=== PATIENT | male | born 1950 | race Caucasian/White ===

== ENCOUNTER → 2023-06-03 10:46 | Outpatient (REF) | payer OTHER, SELFPAY | LOC: HWRAD 10:46 | PROVIDERS: ATTENDING PHYSICIAN Internal Medicine Critical Care Medicine; FAMILY PHYSICIAN Family Medicine | DX: Z87.891 Personal history of nicotine dependence (principal) | CPT/HCPCS: 71271 ==

== ENCOUNTER → 2023-07-14 07:58 | Outpatient (REF) | payer OTHER, SELFPAY ==
[2023-07-14 09:22] LABS: % Basophils 0.6 % (0-2); % Immature Granulocytes 0.7 % (0-0.5); % Lymphocytes 33.7 % (20.5-51.1); % Monocytes 11.3 % (1.7-9.3); % Neutrophils 49.7 % (42.2-75.2); Absolute Eosinophils 0.3 10^3/uL (0-0.7); Absolute Immature Granulocytes 0.1 10^3/uL (0-0.05); Absolute Lymphocytes 2.3 10^3/uL (1.2-3.4); Absolute Monocytes 0.8 10^3/uL (0.1-0.6); Absolute Neutrophils 3.4 10^3/uL (1.4-6.5); Hematocrit 41.4 % (39.0-52.0); Hemoglobin 13.5 g/dL (13.0-18.0); Mean Corp Hgb Conc. 32.6 g/dL (33.0-37.0); Mean Corpuscular Hgb 29.3 pg (27.0-31.0); Mean Platelet Volume 9.5 fL (7.4-10.4); Nucleated Red Blood Cells % 0 % (-); Platelet Count 241 10^3/uL (130-400); Red Cell Dist. Width 13.9 % (11.5-14.5); White Blood Cell Count 6.8 10^3/uL (4.8-10.8)
[2023-07-14 09:50] LABS: Glycohemoglobin (HgbA1c) 6.5 % (4.0-5.6)
[2023-07-14 10:10] LABS: ALT (SGPT) 22 U/L (0-50); AST (SGOT) 27 U/L (17-59); Albumin 3.8 g/dl (3.5-5.0); Alkaline Phosphatase 47 U/L (38-126); Blood Urea Nitrogen 19 mg/dl (9-20); Calcium 9.1 mg/dl (8.4-10.2); Carbon Dioxide 25 mmol/L (22-30); Chloride 105 mmol/L (98-107); Glucose 100 mg/dl (70-99); HDL Cholesterol 51 mg/dl; LDL Cholesterol, Calculated 43 mg/dl; Potassium 4.6 mmol/L (3.5-5.1); Sodium 136 mmol/L (135-145); Total Bilirubin 0.4 mg/dl (0.2-1.3); Total Cholesterol 110 mg/dl (50-199); Total Protein 6.5 g/dl (6.3-8.2); Triglyceride 84 mg/dl (10-149); Very Low Density Lipoprotein 16 mg/dl (0-30); eGFR > 60.00
[2023-07-14 10:37] LABS: TSH 1.58 uIU/ml (0.47-4.68)
== END ==
LOC: HWLAB 07:58
PROVIDERS: ATTENDING PHYSICIAN Internal Medicine; FAMILY PHYSICIAN Family Medicine
DX: I25.10 Atherosclerotic heart disease of native coronary artery without angina pectoris (principal); E78.00 Pure hypercholesterolemia, unspecified
CPT/HCPCS: 36415; 80053; 80061; 83036; 84443; 85025

== ENCOUNTER → 2023-07-29 13:51 | Outpatient (REF) | payer OTHER, SELFPAY | LOC: HWRCS 13:51 | PROVIDERS: ATTENDING PHYSICIAN Internal Medicine; FAMILY PHYSICIAN Family Medicine | DX: I25.10 Atherosclerotic heart disease of native coronary artery without angina pectoris (principal) | CPT/HCPCS: 93306 ==

== ENCOUNTER → 2024-01-19 09:35 | Outpatient (REF) | payer OTHER, SELFPAY ==
[2024-01-19 12:08] LABS: ALT (SGPT) 22 U/L (0-50); AST (SGOT) 26 U/L (17-59); Albumin 3.9 g/dl (3.5-5.0); Alkaline Phosphatase 39 U/L (38-126); Blood Urea Nitrogen 15 mg/dl (9-20); Calcium 8.8 mg/dl (8.4-10.2); Carbon Dioxide 25 mmol/L (22-30); Chloride 107 mmol/L (98-107); Glucose 107 mg/dl (70-99); Potassium 4.6 mmol/L (3.5-5.1); Sodium 143 mmol/L (135-145); Total Bilirubin 0.3 mg/dl (0.2-1.3); Total Protein 6.4 g/dl (6.3-8.2); eGFR > 60.00
[2024-01-19 12:21] LABS: Microalbumin, Random Urine 0.8 mg/dl (0.6-1.7); Microalbumin/creatinine Ratio 3.8 mg/g
[2024-01-19 12:33] LABS: PSA, Total - Screen 2.92 ng/ml (0.0-4.0)
[2024-01-19 12:55] LABS: Glycohemoglobin (HgbA1c) 6.3 % (4.0-5.6)
== END ==
LOC: HWLAB 09:35
PROVIDERS: ATTENDING PHYSICIAN Family Medicine
DX: E11.9 Type 2 diabetes mellitus without complications (principal); K21.9 Gastro-esophageal reflux disease without esophagitis; Z12.5 Encounter for screening for malignant neoplasm of prostate; I10 Essential (primary) hypertension
CPT/HCPCS: 36415; 80053; 82043; 82570; 83036; G0103

== ENCOUNTER 2024-04-27 14:14 | Emergency (ER) | payer OTHER, SELFPAY ==
[2024-04-27] VITALS (7 sets, daily range): BP systolic 142–193; BP diastolic 69–108
--- NOTE | 2024-04-27 14:37 | ED.GENMED ---
ED Provider Triage
<King Barker PA-C - Last Filed: 04/27/24 14:39>
-
Patient seen by provider in Triage?: Seen in Triage
Attestation: A medical screening examination has been initiated by a qualified medical provider. Based on the assessment performed at this time, it has been determined that an emergent medical condition may exist and the patient has been informed
that further medical evaluation and possible additional diagnostic testing may be needed.
HPI: Patient sent to the emergency department for evaluation by primary care provider for evaluation of possible pulmonary embolism after patient has been dealing with chest discomfort, shortness of breath, and upper back pain and cough. Patient
accidentally stopped taking his Eliquis for at least 1 week, restarted the medications last night. No fevers or recent illnesses. Labs, EKG and CTA of the chest ordered.
GENERAL: Alert , in no apparent distress
EYE: No visual abnormalities.
NECK: Trachea midline
ENT: No visible abnormalities.
LUNGS: No acute respiratory distress
NEUROLOGICAL: Alert and oriented
SKIN: Skin intact. No visible changes.
MUSCULOSKELETAL: Moving extremities normally
PSYCH: Normal and appropriate interaction.
This is a medical evaluation conducted in person to initiate diagnostic evaluation and provide initial therapeutics. Please see further documentation by the treating clinician.
History of Present Illness
<King Barker PA-C - Last Filed: 04/27/24 14:39>
General
Chief Complaint: Chest Pain
Time Seen by Provider: 04/27/24 18:32
<ISA Neri - Last Filed: 04/27/24 20:58>
General
Source: patient
Exam Limitations: none
Nursing documentation reviewed up to this point in time: agreed with
History of Present Illness
History of Present Illness:
73 yr old male with pmh of asthma bronchitis COPD CAD, stents followed by pulmonary here at [facility] presents to the ER for evaluation. Patient has had a cough off and on for the past several weeks. He has seen his engineering and development director for this as well
as his family doctor in urgent care. He has had some discomfort in the left side of his chest and rib area. He has had x-rays which were negative for fracture however pain has persisted. He is on prednisone which was started 5 days ago and he
started Zithromax yesterday. He just realized however that he had accidentally stopped taking his Eliquis for the past week and was sent by his family doctor to rule out PE.
He does feel slightly short of breath with exertion or with lifting things. His pain is mostly with exertion lifting or deep breath weight. When he takes any breath he does feel tightness in the left side of his rib area.
He denies any fever chills
Currently at rest , he denies any shortness of breath no chest pain or pain at rest.
He has restarted his Eliquis yesterday.
Review of Systems
<ISA Neri - Last Filed: 04/27/24 20:58>
Review of Systems
Allergies reviewed?: Yes
All Other Systems: ROS reviewed and negative except as documented in HPI and ROS
Constitutional: Reports no symptoms; Denies fever, fatigue or chills
Cardiac: Reports other (left sided rib pain )
ABD/GI: Reports no symptoms
: Reports no symptoms
Musculoskeletal: Reports no symptoms
Skin: Reports no symptoms
Neurological: Reports no symptoms
Psychiatric: Reports no symptoms
Phy Exam
<ISA Neri - Last Filed: 04/27/24 20:58>
General Physical Exam
General Presentation: no apparent distress
General age: appears stated age
General Skin: warm and dry
General Habitus: normal
General Mental: alert
General Hydration: appears well hydrated
Cardiovascular Exam
Cardiovascular Exam: regular rate/rhythm, no murmur and normal peripheral pulses
Pulmonary Exam
Pulmonary Exam: lungs clear, no respiratory distress and other (Mild left lateral rib tenderness on exam)
Neurological Exam
Neurological Exam: alert and oriented x3
Musculoskeletal Exam
Musculoskeletal Exam: full ROM
Skin Exam
Skin Exam: normal color and warm/dry
Psychiatric Exam
Psychiatric Exam: normal mood/affect
Scores
<ISA Neri - Last Filed: 04/27/24 20:58>
Heart Score for Chest Pain Patients
STEMI patient?: Not applicable
Course
<King Barker PA-C - Last Filed: 04/27/24 14:39>
Orders/Labs/Results
Orders:
Orders
04/27/24 14:16
ECG [Electrocardiogram (*1)] Urgent
Reason for Study: Chest Pain
EKG- Treatment ONCE
04/27/24 14:39
CT Chest PE Study Urgent
Comment:
Reason For Exam: chest pain, SOB
04/27/24 14:48
Complete Blood Count/With Diff Urgent
Comprehensive Metabolic Panel Urgent
NT-proBNP Urgent
Troponin I Urgent
04/27/24 18:21
PT/INR [Prothrombin Time] Urgent
PTT Urgent
04/27/24 19:04
IV Insert/Care/Rem.- Treatment PRN
0.9% Sodium Chloride 1000 ml [Nss] 1,000 ml IV BOLUS
04/27/24 19:06
Acetaminophen [Tylenol] 1,000 mg PO NOW STA
Abnormal Lab Results
04/27/24
14:48
WBC 17.3 H 10^3/uL
(4.8-10.8)
MCHC 32.8 L g/dL
(33.0-37.0)
Abs Immat Gran (auto) 0.2 H 10^3/uL
(0-0.05)
Absolute Neuts (auto) 12.8 H 10^3/uL
(1.4-6.5)
Absolute Monos (auto) 1.7 H 10^3/uL
(0.1-0.6)
Immature Gran % 1.0 H %
(0-0.5)
Lymphocytes % 14.9 L %
(20.5-51.1)
Monocytes % 9.8 H %
(1.7-9.3)
Sodium 133 L mmol/L
(135-145)
BUN 21 H mg/dl
(9-20)
04/27/24 14:48
04/27/24 14:48
Vital Signs
Initial and Last Documented VS:
Initial Vital Signs
Temp Pulse Resp BP Pulse Ox
98.4 F 85 18 164/99 99
04/27/24 14:36 04/27/24 14:36 04/27/24 14:36 04/27/24 14:36 04/27/24 14:36
Last Documented Vital Signs
Temp Pulse Resp BP Pulse Ox
98.4 F 82 21 166/108 96
04/27/24 14:36 04/27/24 20:15 04/27/24 20:15 04/27/24 20:00 04/27/24 20:15
<ISA Neri - Last Filed: 04/27/24 20:58>
Orders/Labs/Results
Orders:
Orders
04/27/24 14:16
ECG [Electrocardiogram (*1)] Urgent
Reason for Study: Chest Pain
EKG- Treatment ONCE
04/27/24 14:39
CT Chest PE Study Urgent
Comment:
Reason For Exam: chest pain, SOB
04/27/24 14:48
Complete Blood Count/With Diff Urgent
Comprehensive Metabolic Panel Urgent
NT-proBNP Urgent
Troponin I Urgent
04/27/24 18:21
PT/INR [Prothrombin Time] Urgent
PTT Urgent
04/27/24 19:04
IV Insert/Care/Rem.- Treatment PRN
0.9% Sodium Chloride 1000 ml [Nss] 1,000 ml IV BOLUS
04/27/24 19:06
Acetaminophen [Tylenol] 1,000 mg PO NOW STA
Abnormal Lab Results
04/27/24
14:48
WBC 17.3 H 10^3/uL
(4.8-10.8)
MCHC 32.8 L g/dL
(33.0-37.0)
Abs Immat Gran (auto) 0.2 H 10^3/uL
(0-0.05)
Absolute Neuts (auto) 12.8 H 10^3/uL
(1.4-6.5)
Absolute Monos (auto) 1.7 H 10^3/uL
(0.1-0.6)
Immature Gran % 1.0 H %
(0-0.5)
Lymphocytes % 14.9 L %
(20.5-51.1)
Monocytes % 9.8 H %
(1.7-9.3)
Sodium 133 L mmol/L
(135-145)
BUN 21 H mg/dl
(9-20)
04/27/24 14:48
04/27/24 14:48
Vital Signs
Initial and Last Documented VS:
Initial Vital Signs
Temp Pulse Resp BP Pulse Ox
98.4 F 85 18 164/99 99
04/27/24 14:36 04/27/24 14:36 04/27/24 14:36 04/27/24 14:36 04/27/24 14:36
Last Documented Vital Signs
Temp Pulse Resp BP Pulse Ox
98.4 F 82 21 166/108 96
04/27/24 14:36 04/27/24 20:15 04/27/24 20:15 04/27/24 20:00 04/27/24 20:15
<ISA Neri - Last Filed: 04/27/24 20:58>
MDM/Problems Addressed
MDM/Problems Addressed:
Patient is a 72-year-old male with COPD bronchitis has had intermittent cough as documented for the past several weeks presently on prednisone and Zithromax has had left-sided rib pleuritic type chest pain however sent by family doctor to rule out
PE because he has not been taking his Eliquis for the past week. Simply forgot. He does have CAD and stents. He denies any shortness of breath at rest he denies any pain at rest. Pain and shortness of breath occurs with deep breath moving
lifting sitting up. He denies any fevers his white count is elevated 17,000 but he is on prednisone. Will obtain CAT scan to rule out PE likely pleuritic. Patient is nontoxic. Nontachycardic nonhypoxic lungs are clear we will plan for discharge
if CT negative.
2044CT neg for PE
Symptoms are consistent with pleuritic type pain/pleurisy from cough over the past several weeks.
Patient has all of his normal medications, inhalers at home that he uses for COPD. He will continue his prednisone and Zithromax I did review with patient Tylenol, warm moist heat and close follow-up with family doctor/pulmonology as needed. Will
have patient follow-up with his protein purification scientist
(Dr Guerrero) for new RBBB).
<ISA Neri - Last Filed: 04/27/24 20:58>
*Radiology
Radiology exam reviewed: radiology read reviewed
*Pulse Oximetry
Patient hypoxic: no
*EKG
Interpreted by ED Provider?: Yes
Interpretation: abnormal
Comparison EKG: changes noted (rbb now present )
Heart Rate: 81
Rate: normal
Rhythm: sinus
QRS Pattern: right bundle branch block
Ischemia: no ischemia
*Critical Care Note
Total Time (30-74mins, 75-104mins- exclusive of procedures): Not Applicable
ED Attending Note
<King Barker PA-C - Last Filed: 04/27/24 14:39>
-
Portions of this chart may have been created with voice recognition software.� Occasional wrong word or��sound alike� substitutions may have occurred due to the inherent limitations of voice recognition software.
Discharge Plan
Departure
Patient Disposition: Home (Routine Discharge)
Date of Disposition: 04/27/24
Time of Disposition: 20:55
Patient with high blood pressure during this ER visit?: Yes
Condition: Fair
Covid-19: Not Applicable
Discharge Problem:
Pleurisy
Instructions: Pleuritic Chest Pain ED, BLOOD PRESSURE, Pleurisy
Prescriptions:
No Action
Albuterol
2 puff inhalation Q4H PRN (Reason: ASTHMA)
Patient Comments:
'DONT USE MUCH'
aspirin 325 MG tablet
325 mg PO DAILY
esomeprazole magnesium [Nexium] 20 MG capsule,delayed release(DR/EC)
20 mg PO DAILY
rosuvastatin 10 MG tablet
10 mg PO HS
tiotropium bromide [Spiriva with HandiHaler] 18 MCG capsule, w/inhalation device
1 cap inhalation DAILY
vitamin E (dl, acetate) 400 UNITS capsule
400 units PO DAILY
Referrals:
Marta Garcia MD [Active] -
Richard Arana CRNP [Family Provider] -
Activity Restrictions/Additional Instructions:
As discussed continue your prednisone and antibiotic as previously prescribed along with all of your other medications including inhalers. Be sure to continue Eliquis. You may try Tylenol for discomfort as well as warm moist heat. Follow-up with
your family doctor next several days and pulmonology as needed. Return if any worsening of symptoms. Also follow-up with cardiology as scheduled you do have a right bundle branch block on your EKG.
Interventions
Interventions:
*Risk Screen - Suicide Last Done: 04/27/24 14:36
*General Assessment Last Done: 04/27/24 18:14
*Neglect/Abuse Screening Last Done: 04/27/24 14:36
ED- Fall Risk Assessment Last Done: 04/27/24 18:14
*ED COVID-19 Vaccine History Last Done: 04/27/24 14:42
ED- Cardiac Assessment Last Done: 04/27/24 18:14
Discharge Date and Time
Print Language: GERMAN
[2024-04-27 14:59] LABS: % Basophils 0.1 % (0-2); % Eosinophils 0.1 % (0-6); % Lymphocytes 14.9 % (20.5-51.1); % Monocytes 9.8 % (1.7-9.3); % Neutrophils 74.1 % (42.2-75.2); Absolute Immature Granulocytes 0.2 10^3/uL (0-0.05); Absolute Lymphocytes 2.6 10^3/uL (1.2-3.4); Absolute Monocytes 1.7 10^3/uL (0.1-0.6); Absolute Neutrophils 12.8 10^3/uL (1.4-6.5); Hemoglobin 14.1 g/dL (13.0-18.0); Mean Corp Hgb Conc. 32.8 g/dL (33.0-37.0); Mean Corpuscular Hgb 29.7 pg (27.0-31.0); Mean Corpuscular Volume 90.5 fL (80.0-94.0); Mean Platelet Volume 9.5 fL (7.4-10.4); Nucleated Red Blood Cells % 0 % (-); Platelet Count 248 10^3/uL (130-400); Red Blood Cell Count 4.75 10^6/uL (4.70-6.10); Red Cell Dist. Width 13.9 % (11.5-14.5); White Blood Cell Count 17.3 10^3/uL (4.8-10.8)
[2024-04-27 15:23] LABS: ALT (SGPT) 20 U/L (0-50); AST (SGOT) 19 U/L (17-59); Albumin 3.8 g/dl (3.5-5.0); Alkaline Phosphatase 58 U/L (38-126); Blood Urea Nitrogen 21 mg/dl (9-20); Calcium 9.2 mg/dl (8.4-10.2); Carbon Dioxide 27 mmol/L (22-30); Chloride 100 mmol/L (98-107); Glucose 91 mg/dl (70-99); NT-proBNP 210 pg/ml; Potassium 4.6 mmol/L (3.5-5.1); Sodium 133 mmol/L (135-145); Total Bilirubin 0.6 mg/dl (0.2-1.3); Total Protein 6.5 g/dl (6.3-8.2); Troponin I < 0.012 ng/ml; eGFR > 60.00
[2024-04-27 18:42] LABS: INR 1.06; PT 14.1 Sec (11.4-14.6)
[2024-04-27 18:43] LABS: APTT 24.7 Sec (23.4-35.0)
[2024-04-27] MEDS: TYLENOL 1000 MG PO (19:46)
[2024-04-27] MEDS: NSS 1000 IV (19:49)
== END 2024-04-27 21:46 | disposition home or self-care (01) ==
LOC: EMR 14:14
PROVIDERS: Physician Assistant Medical; EMERGENCY PHYSICIAN Student in an Organized Health Care Education/Training Program; FAMILY PHYSICIAN Chiropractor
DX: R09.1 Pleurisy (principal); I25.10 Atherosclerotic heart disease of native coronary artery without angina pectoris; R03.0 Elevated blood-pressure reading, without diagnosis of hypertension
CPT/HCPCS: 99285; 96360; 71275; 80053; 83880; 84484; 85025; 85610; 85730; 93005; Q9967

== ENCOUNTER → 2024-06-22 12:50 | Outpatient (REF) | payer OTHER, SELFPAY | LOC: HWRCS 12:50 | PROVIDERS: ATTENDING PHYSICIAN Internal Medicine; FAMILY PHYSICIAN Family Medicine | DX: R06.02 Shortness of breath (principal); I45.10 Unspecified right bundle-branch block | CPT/HCPCS: 93306 ==

== ENCOUNTER → 2024-07-27 08:01 | Outpatient (REF) | payer OTHER, SELFPAY | LOC: HWRCS 08:01 | PROVIDERS: ATTENDING PHYSICIAN Internal Medicine; FAMILY PHYSICIAN Chiropractor | DX: I25.10 Atherosclerotic heart disease of native coronary artery without angina pectoris (principal) | CPT/HCPCS: 78452; 93017; A9500; J2785 ==

== ENCOUNTER → 2024-10-26 09:02 | Outpatient (REF) | payer OTHER, SELFPAY ==
[2024-10-26 11:50] LABS: Glycohemoglobin (HgbA1c) 6.2 % (4.0-5.6)
[2024-10-26 11:54] LABS: AST (SGOT) 20 U/L (17-59); Albumin 3.9 g/dl (3.5-5.0); Alkaline Phosphatase 31 U/L (38-126); Blood Urea Nitrogen 22 mg/dl (9-20); Calcium 9.3 mg/dl (8.4-10.2); Carbon Dioxide 26 mmol/L (22-30); Chloride 107 mmol/L (98-107); Glucose 106 mg/dl (70-99); Potassium 4.0 mmol/L (3.5-5.1); Sodium 138 mmol/L (135-145); Total Protein 6.4 g/dl (6.3-8.2); eGFR > 60.00
[2024-10-26 11:55] LABS: ALT (SGPT) 22 U/L (0-50)
== END ==
LOC: HWLAB 09:02
PROVIDERS: ATTENDING PHYSICIAN Family Medicine
DX: E11.69 Type 2 diabetes mellitus with other specified complication (principal); E78.2 Mixed hyperlipidemia; E78.00 Pure hypercholesterolemia, unspecified; E11.59 Type 2 diabetes mellitus with other circulatory complications
CPT/HCPCS: 80053; 83036

== ENCOUNTER → 2025-01-07 12:12 | Outpatient (REF) | payer OTHER, SELFPAY ==
[2025-01-07 13:43] LABS: Blood Urea Nitrogen 9 mg/dl (9-20); Calcium 9.3 mg/dl (8.4-10.2); Carbon Dioxide 30 mmol/L (22-30); Chloride 100 mmol/L (98-107); Glucose 104 mg/dl (70-99); Potassium 4.7 mmol/L (3.5-5.1); Sodium 136 mmol/L (135-145); eGFR > 60.00
== END ==
LOC: RAD 12:12
PROVIDERS: ATTENDING PHYSICIAN Internal Medicine Gastroenterology; FAMILY PHYSICIAN Family Medicine
DX: R10.10 Upper abdominal pain, unspecified (principal); R63.4 Abnormal weight loss
CPT/HCPCS: 36415; 74177; 80048; Q9967